=== PATIENT | male | born 1930 | race Caucasian/White ===

== ENCOUNTER → 2018-03-31 | Outpatient (CLI) | payer MEDICARE, BC ==
--- NOTE | 2018-04-01 15:20 | CT ---
EXAMINATION TYPE: CT chest wo con DATE OF EXAM: 03/31/2018 COMPARISON: NONE HISTORY: Interstitial pulmonary disease. Shortness of breath x 1-[address] DLP: 124 mGycm. Automated Exposure Control for Dose Reduction was Utilized. TECHNIQUE: CT scan of the thorax is performed without IV contrast. FINDINGS: LUNGS: Subsegmental consolidation at both lung bases greater on the left with tiny bilateral effusion s. No pneumothorax. Basilar bronchiectasis noted. Apical pleural thickening noted. MEDIASTINUM: Lack of IV contrast is noted to limit evaluation for mediastinal and especially hilar ad enopathy. There are no definitive greater than 1 cm hilar or mediastinal lymph nodes. Heart is enlarg ed and there is coronary artery calcification. Calcification left hilum incidentally noted. OTHER: Gynecomastia noted and there is a cardiac device.. Hepatic dome nodule too small to characteri ze. IMPRESSION: 1. Bilateral lower lobe infiltrate and tiny effusion greater on the left with no diagnostic evidence of pulmonary fibrosis. 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 2. Cardiomegaly and coronary artery calcification.
== END | disposition home or self-care (01) ==
LOC: RADCTMAIN 18:51
PROVIDERS: ATTEND Internal Medicine Critical Care Medicine
DX: J90 Pleural effusion, not elsewhere classified (principal); R91.8 Other nonspecific abnormal finding of lung field; I51.7 Cardiomegaly; I25.10 Atherosclerotic heart disease of native coronary artery without angina pectoris
CPT/HCPCS: 71250